=== PATIENT | male | born 1945 | race African-American/Black ===

== ENCOUNTER 2021-11-08 07:15 | Outpatient (CLI) | payer MEDICARE, SELFPAY ==
--- NOTE | 2021-11-08 | ECG_ITS ---
Measurements Intervals Lizella Rate: 50 P: 69 CT: 187 QRS: -9 QRSD: 90 T: 33 QT: 403 QTc: 370 Interpretive Statements SINUS BRADYCARDIA WITH OCCASIONAL SUPRAVENTRICULAR PREMATURE COMPLEXES ABNORMAL ECG NO PREVIOUS ECG AVAILABLE FOR COMPARISON Electronically Signed On 11-08-2021 12:48:52 CDT by Teto Patten M.D.
== END 2021-11-08 07:16 | disposition home or self-care (01) ==
PROVIDERS: PCP Internal Medicine
DX: R05.9 Cough, unspecified (principal); I49.9 Cardiac arrhythmia, unspecified; R94.31 Abnormal electrocardiogram [ECG] [EKG]
CPT/HCPCS: 93005

== ENCOUNTER 2024-08-11 07:03 | Emergency (ER) | payer MEDICARE, SELFPAY ==
--- NOTE | ~2024-08-11 | XR_ITS ---
XR knee RT 3V 08/11/2024 08:07 Indication: Knee pain after recent injury Procedure: 4 views right knee Comparison: 10/31/2008 Findings: There is extensive atherosclerosis. No fracture or traumatic malalignment. No significant j oint effusion. Mild prepatellar soft tissue swelling. No foreign bodies. Impression: 1: No acute bone or joint abnormality. Reviewed, dictated and finalized at location A. KER OPERATOR Impression: 1: No acute bone or joint abnormality.
--- OUTSIDE RECORDS SUMMARY | 2024-08-11 07:05 | XMS_ITS | Patient Health Summary ---
Author Organization [facility] Address [address] [facility] [place] [address] Care Team Providers Care Twister Frame Tender Name Role Phone Alvin Shane DO Primary Care Provider [phone] Note from [facility],non-owned Affiliates and Associated Physician Practices is amultiple site organization consisting of ambulatory clinics and hospital sitesin [place], [place], [place] and [place]. This disclosure is being madepursuant to the Care Everywhere program and may not contain all information available regarding this patient. Last updated 18.[facility] Medications * Be aware that medications may not be up to date on this document. Alwaysverify current medications with the patient. * mycophenolate (Cellcept) 250 MG capsule(Started 05/19/2024) Take 2 (two) capsules by mouth 2 times daily * mycophenolate (Cellcept) 250 MG capsule(Started 07/14/2024) Take 2 (two) capsules by mouth 2 times daily 3 refills by 07/14/2025 Social History Tobacco Use Types Packs/Day Years Used Date Smoking Tobacco: Never Assessed Sex and Gender Information Value Date Recorded Sex Assigned at Not on file Gender Identity Not on file Sexual Orientation Not on file Care Teams Twister Frame Tender Relationship Specialty Start Date End Date Alvin Shane DO PCP - General 05/02/08
--- OUTSIDE RECORDS SUMMARY | 2024-08-11 07:05 | XMS_ITS | Referral Summary ---
Author Organization [facility] Address [address] [facility] [place] [address] Care Team Providers Care Cvicu Nurse Name Role Phone Alvin Shane DO Primary Care Provider [phone] Source Comments [facility],non-owned Affiliates and Associated Physician Practices is amultiple site organization consisting of ambulatory clinics and hospital sitesin [place], [place], [place] and [place]. This disclosure is being madepursuant to the Care Everywhere program and may not contain all information available regarding this patient. Last updated 18.[facility] Encounters Date Type Department Care Team Description 08/04/2024 Orders Only [facility] Ne[facility] [address] [place] [phone] Milena Aldana MD Encounter for monitoring tacrolimus therapy ; Long-term use of immunosuppressant medication; Kidney replaced by transplant (HCC) 08/04/2024 Telephone [facility] [address] [place] [address] [phone] Angela Winters, RN Pain Abdominal 08/03/2024 Telephone [facility] [address] [place] [address] [phone] Jannette Noe RN General (Call back) 07/14/2024 Refill [facility] [address] [place] [address] [phone] Angela Winters, CHARTER AND TOUR BUS DRIVER REFILL 07/01/2024 Telephone [facility] [address] [place] [address], [place] [address] Chano Palacios, distribution center administrator Issue from Last 3 Months Medications * Be aware that medications may not be up to date on this document. Alwaysverify current medications with the patient. Medication Sig Dispensed Refills Start Date End Date Status mycophenolate (Cellcept) 250 MG capsule Take 2 (two) capsules by mouth 2 times daily 05/19/2024 Active mycophenolate (Cellcept) 250 MG capsuleIndications: Kidney transplant status (HCC) Take 2 (two) capsules by mouth 2 times daily 120 capsule 3 07/14/2024 Active Social History Tobacco Use Types Packs/Day Years Used Date Smoking Tobacco: Never Assessed Sex and Gender Information Value Date Recorded Sex Assigned at Not on file Gender Identity Not on file Sexual Orientation Not on file Plan of Treatment Upcoming Encounters Date Type Department Care Team (Late st Contact Info) Description 10/04/2024 8:40 AM CDT Office Visit [facility] [address] [place] [address] Care Teams Cvicu Nurse Relationship Specialty Start Date End Date Alvin Shane DO PCP - General 05/02/08
--- OUTSIDE RECORDS SUMMARY | 2024-08-11 07:05 | XMS_ITS | Clinical Summary ---
Author Organization [facility] Address [address] [facility] [place] [address] Care Team Providers Care Director Of Laboratory Operations Name Role Phone Alvin Shane DO Primary Care Provider [phone] Source Comments [facility],non-owned Affiliates and Associated Physician Practices is amultiple site organization consisting of ambulatory clinics and hospital sitesin [place], [place], [place] and [place]. This disclosure is being madepursuant to the Care Everywhere program and may not contain all information available regarding this patient. Last updated 18.[facility] Medications * Be aware that medications may [...] times daily 120 capsule 3 07/14/2024 Active Encounters Date Type Department Care Team Description 08/04/2024 Orders Only [facility] Ne[facility] [address] [place] [address] [phone] Milena Aldana MD Encounter for monitoring tacrolimus therapy ; Long-term use of immunosuppressant medication; Kidney replaced by transplant (HCC) 08/04/2024 Telephone [facility] [address] [place] [phone] Angela Winters RN Pain Abdominal 08/03/2024 Telephone [facility] [address] [place] [address] [phone] Jannette Noe, MAHESH General (Call back) 07/14/2024 Refill [facility] [address] [place] [address] [phone] Angela Winters RN MEDICATION REFILL 07/01/2024 Telephone [facility] [address] [place] [address] [phone] Chano Palacios, reception agent Issue from Last 3 Months Social History Tobacco Use Types Packs/Day Years Used Date Smoking Tobacco: Never Assessed Sex and Gender Information Value Date Recorded Sex Assigned at Not on file Gender Identity Not on file Sexual Orientation Not on file Plan of Treatment Upcoming Encounters Date Type Department Care Team (Late st Contact Info) Description 10/04/2024 8:40 AM CDT Office Visit [facility] [address] [place] [phone] Health Maintenance Due Date Last Done Comments MEDICARE AWV ? 12 MONTHS 1945 COVID-19 VACCINE (#1) 1949 DTAP/TDAP/TD VACCINES (1 - Tdap) 12/21/1963 PNEUMOCOCCAL VACCINE 50+ (1 of 2 - PCV) 12/21/1963 ZOSTER VACCINE (1 of 2) 12/21/1963 Respiratory Syncytial Virus (RSV) Vaccine Pt: or over 60 yrs (1 - 1-dose 75+ series) 12/21/2019 INFLUENZA VACCINE (#1) 2024 DEPRESSION SCREENING 07/13/2024 HEPATITIS B VACCINE Aged Out No longe r eligible based on patient's age to complete this topic HIB VACCINE Aged Out No longer eligi ble based on patient's age to complete this topic HPV VACCINE Aged Out No longer eligi ble based on patient's age to complete this topic MENINGOCOCCAL (Group B) VACCINE Aged Out No longer eligible based on patient's age to complete this topic MENINGOCOCCAL VACCINE Aged Out No nik yojana eligible based on patient's age to complete this topic Care Teams Director Of Laboratory Operations Relationship Specialty Start Date End Date Alvin Shane DO PCP - General 05/02/08
--- OUTSIDE RECORDS SUMMARY | 2024-08-11 07:05 | XMS_ITS | Encounter Summary ---
Author Organization [facility] Address [address] [place] [address] Care Team Providers Care Regulatory Leader Name Role Phone Siomara Handy MD Primary Care Provider [phone] Reason for Visit * Reason Onset Date Comments Medication Refill 04/24/2022 Encounter Details Date Type Department Care Team (Late st Contact Info) Description 04/24/[address] [facility] Heart and Vascular - [address] [facility] [address] [address] [facility] [address] [place] [address] [place] [address] [facility] [address] [place] [address] Medication Refill Social History Tobacco Use Types Packs/Day Years Used Date Smoking Tobacco: Never Smokeless Tobacco: Never Alcohol Use Standard Drinks/Week Comments Yes 0 (1 standard drink = 0.6 oz pur e alcohol) Sex and Gender Information Value Date Recorded Sex Assigned at Not on file Legal Sex Male 12:24 PM CDT Gender Identity Not on file Sexual Orientation Not on file COVID-19 Exposure Response Date Recorded In the last 10 days, have yo u been in contact with someone who was confirmed or suspected to have Coronavirus/COVID-19? No / Unsure 04/22/2022 7:29 AM CDT documented as of this encounter Miscellaneous Notes * Telephone Encounter - Viky Kim - 04/24/2022 11:16 AM CDT Patient is requesting refills on his Tacrolimus and Lovastatin to be sent to [facility] [phone]. documented in this encounter Plan of Treatment Not on file documented as of this encounter Visit Diagnoses Not on filedocumented in this encounter Care Teams Regulatory Leader Relationship Specialty Start Date End Date Siomara Handy MD PCP - General Internal Medicine 09/20/20 documented as of this encounter
--- OUTSIDE RECORDS SUMMARY | 2024-08-11 07:05 | XMS_ITS | Clinical Summary ---
Author Organization [facility] Address [address] [place] [address] Phone Care Team Providers Care Freelance Operator Name Role Phone Siomara Handy MD Primary Care Provider [phone] Allergies No known active allergies Medications aspirin (ECOTRIN EC) 81 mg Tablet, Delayed Release (E.C.) Take 81 mg by mouth daily. Active primidone (MYSOLINE) 50 mg tablet Take 1 Tablet (50 mg) by mouth daily at bedtime. 30 Tablet 3 1 Active neomycin-bacitra shameka-polymyxin (AK-SPORE) 3.5-400-10,000 lq-fwyp-ptcz/g ointment 0.25 Inches by See Admin Instructions route 3 times daily. 30 Gram 2 Active nystatin (MYCOSTATIN) 100,000 unit/gram Cream Apply to affected area 2 times daily. 30 Gram 1 4 Active finasteride (PROSCAR) 5 mg tablet Take 1 Tablet (5 mg) by mouth daily. 90 Tablet 3 4 Active tamsulosin (FLOMAX) 0.4 mg capsule Take 1 capsule by mouth once daily at bedtime 90 Capsule 4 Active lisinopriL (PRINIVIL) 5 mg tabletIndication s:Benign hypertension Take 1 Tablet (5 mg) by mouth 2 times daily. 270 Tablet 3 4 Active lovastatin (MEVACOR) 10 mg tablet Take 1 Tablet (10 mg) by mouth daily with supper. 90 Tablet 2 4 Active mycophenolate mofetil (CELLCEPT) 250 mg Capsule Take 2 Capsules (500 mg) by mouth 2 times daily. 120 Capsule 2 4 Active valACYclovir (VALTREX) 500 mg tablet TAKE 1 TABLET BY MOUTH EVERY THURSDAY AND 24 Tablet 4 Active valACYclovir (VALTREX) 500 mg tablet TAKE 1 TABLET BY MOUTH ONCE DAILY EVERY THURSDAY AND THURSDAY 24 Tablet 3 4 Active tacrolimus (PROGRAF) 1 mg capsule Take 1 Capsule (1 mg) by mouth 2 times daily. 180 Capsule 2 4 Active mupirocin (BACTROBAN) 2 % Ointment Apply to affected area daily. 30 Gram 1 4 Active doxazosin (CARDURA) 2 mg tablet Take 1 Tablet (2 mg) by mouth daily at bedtime. 90 Tablet 2 4 Active mycophenolate mofetil (CELLCEPT) 250 mg Capsule Take 2 Capsules (500 mg) by mouth 2 times daily. 120 Capsule 3 4 Active lovastatin (MEVACOR) 10 mg tablet TAKE 1 TABLET BY MOUTH ONCE DAILY WITH SUPPER 90 Tablet 4 Active Active Problems Problem Noted Date Diagnosed Date Benign prostatic hyperplasia without lower urinary tract symptoms 04/22/2022 Leukopenia 10/22/2021 Other hyperlipidemia 09/25/2020 Kidney replaced by transplant 08/21/2019 Immunosuppressive management encounter following kidney transplant 08/21/2019 Prostate cancer 08/21/2019 Benign hypertension 08/21/2019 Encounters Date Type Department Care Team Description 07/01/2024 [facility] - [address] [address] Jia Hicks PA-C 05/19/2024 [facility] Integrated Provider [address] [place] [address] Jessica Flores NP from Last 3 Months Family History Medical History Relation Name Comments Hypertension Father Kidney Disease Mother Other Mother PCKD Relation Name Status Comments Father Mother Social History Tobacco Use Types Packs/Day Years Used Date Smoking Tobacco: Never Smokeless Tobacco: Never Alcohol Use Standard Drinks/Week Comments Yes 0 (1 standard drink = 0.6 oz pur e alcohol) Sex and Gender Information Value Date Recorded Sex Assigned at Not on file Legal Sex Male 12:24 PM CDT Gender Identity Not on file Sexual Orientation Not on file Last Filed Vital Signs Vital Sign Reading Time Taken Comments Blood Pressure 138/83 04/22/2022 7:44 AM CDT Pulse 53 04/22/2022 7:44 AM CDT Temperature 36.1 ??C (97 ??F) 04/22/2022 7:44 AM CDT Respiratory Rate - - Oxygen Saturation 100% 01/21/2022 7:30 AM CDT Inhaled Oxygen Concentration - - Weight 85.2 kg (187 lb 12.8 oz) 04/22/2022 7:44 AM CDT Height 180.3 cm (5' 11 ) 04/22/2022 7:44 AM CDT Body Mass Index 26.19 04/22/2022 7:44 AM CDT Plan of Treatment Health Maintenance Due Date Last Done Comments DTAP/TDAP/TD VACCINES (1 - Tdap) 12/21/1963 PNEUMOCOCCAL VACCINE 65+ YEARS (1 of 2 - PCV) 12/20/18 64 ZOSTER VACCINE (1 of 2) 12/21/1963 RSV VACCINE (60+ or ) (1 - 1-dose 75+ series) 12/21/2019 INFLUENZA VACCINE (#1) 2024 Insurance [facility] [id number] Care Teams Freelance Operator Relationship Specialty Start Date End Date Siomara Handy MD PCP - General Internal Medicine 09/20/20
[2024-08-11 07:12] VITALS: BP 165/83; PULSE 65; RESP 18; TEMP 36.4; O2SAT 99
--- NOTE | 2024-08-11 07:25 | ED.GENADULT ---
HPI - General Adult General Chief complaint: Extremity Injury, Lower Stated complaint: bad knee Time Seen by Provider: 08/11/24 07:15 History of Present Illness HPI narrative: 78-year-old male presenting to the emergency department for evaluation for right knee pain. Patient reports approximately 3 weeks ago he did have a fall on the ice landing on the right knee. Patient states he did have x-rays immediately after the injury and was shown to have no fractures. Patient states he did develop significant swelling of the knee but the swelling is now going down. Patient does prior history of kidney transplant approximately 18 years ago. Related Data Allergies Allergy/AdvReac Type Severity Reaction Status Date / Time No Known Allergies Allergy Verified 08/11/24 07:20 Review of Systems Review of Systems: All systems reviewed & are unremarkable except as noted in HPI and below Exam Narrative: APPEARANCE: Well appearing, no pain, no distress, well-nourished. HEAD: normocephalic, atraumatic. EYES: PERRLA/EOMI, conjunctivae clear. NOSE: Normal no drainage EARS:TMS clear with good light reflex. THROAT: Pharynx clear, no exudate. NECK: Supple. No adenopathy, no masses. RESPIRATORY: Airway patent, respirations nonlabored. Clear to auscultation bilaterally, no rales, rhonchi, wheezing. CARDIOVASCULAR: Regular rate and rhythm without murmurs rubs or gallops. ABDOMINAL: Soft, nontender, nondistended, normal bowel sounds MUSCULOSKELETAL: Moves all extremities. Strength/ROM intact, No edema, No calf tenderness. NEURO: Alert. Cranial nerves II through XII intact. Good gait. Good coordination SKIN: Warm, dry. Normal Color Course Vital Signs Vital signs: Vital Signs Temperature 97.6 F 08/11/24 07:12 Pulse Rate 65 08/11/24 07:12 Respiratory Rate 18 08/11/24 07:12 Blood Pressure 165/83 H 08/11/24 07:12 Pulse Oximetry 99 08/11/24 07:12 Oxygen Delivery Room Air 08/11/24 07:12 Temperature 97.6 F 08/11/24 07:12 Pulse Rate 65 08/11/24 07:12 Respiratory Rate 18 08/11/24 07:12 Blood Pressure 165/83 H 08/11/24 07:12 Pulse Oximetry 99 08/11/24 07:12 Oxygen Delivery Room Air 08/11/24 07:12 Medical Decision Making MDM Narrative Medical decision making narrative: 78-year-old male presenting to the emergency department for evaluation for right knee pain. Attempted to order CT scan but patient declined. Patient just wants to have an x-ray done. X-ray was negative for acute fracture dislocation. Patient does have adequate passive range of motion the knee without significant discomfort with some mild effusion, no concern for septic arthritis. Suspect patient had a resolving effusion. Patient was encouraged close follow-up with his primary care physician. All questions concerns were addressed patient was well-appearing at time of discharge. Differential Diagnosis Differential Diagnosis: Knee contusion, knee effusion, knee fracture, septic arthritis, tibial plateau fracture Vital Signs Vital Signs: Vital Signs Temperature 97.6 F 08/11/24 07:12 Pulse Rate 65 08/11/24 07:12 Respiratory Rate 18 08/11/24 07:12 Blood Pressure 165/83 H 08/11/24 07:12 Pulse Oximetry 99 08/11/24 07:12 Oxygen Delivery Room Air 08/11/24 07:12 Temperature 97.6 F 08/11/24 07:12 Pulse Rate 65 08/11/24 07:12 Respiratory Rate 18 08/11/24 07:12 Blood Pressure 165/83 H 08/11/24 07:12 Pulse Oximetry 99 08/11/24 07:12 Oxygen Delivery Room Air 08/11/24 07:12 Imaging Data Radiologist's impression: Impressions Knee X-Ray 08/11/24 08:09 Impression: 1: No acute bone or joint abnormality. Discharge Plan Discharge Clinical Impression: Contusion of knee, right Patient Disposition: Home, Self-Care Condition: Stable Instructions: Antibiotic Form, Knee Pain (ED) Additional Instructions: You declined to have a CT of the knee. You prefer to have an x-ray. X-ray was negative for acute fracture or dislocation. Jean wrap for comfort. Continue to have close follow-up with your primary care physician for additional outpatient imaging as needed if you are not improving. If you have any worsening symptoms then please call or return to the emergency department. Patient Language: Armenian Follow-up/Referrals: Siomara Handy MD [Primary Care Provider] -
--- OUTSIDE RECORDS SUMMARY | 2024-08-11 08:31 | XMS_ITS | Clinical Summary ---
Author Organization [facility] Address [address] [facility] [place] [address] Care Team Providers Care Drywall Boardhanger Name Role Phone Alvin Shane DO Primary Care Provider [phone] Source Comments [facility] [employer] [facility],non-owned Affiliates and Associated Physician Practices is amultiple site organization consisting of ambulatory clinics and hospital sitesin [place], [place], [place] and [place]. This disclosure is being madepursuant to the Care Everywhere program and may not contain all information available regarding this patient. Last updated 18.[facility] [employer] [facility] Medications * Be aware that medications may [...] Orders Only [facility] [address] [place] [address] [phone] Milena Aldana MD Encounter for monitoring tacrolimus therapy ; Long-term use of immunosuppressant medication; Kidney replaced by transplant (HCC) 08/04/2024 Telephone [facility] [address] [place] [phone] Angela Winters RN Pain Abdominal 08/03/2024 Telephone [facility] [address] [place] [address] [phone] Jannette Noe, MAHESH General (Call back) 07/14/2024 Refill [facility] [address] [place] [address] [phone] Angela Winters RN MEDICATION REFILL 07/01/2024 Telephone [facility] [address] [place] [address] [phone] Chano Palacios, photoresist contact printer Issue from Last 3 Months Social History [...] Office Visit [facility] [address] [place] [phone] Health Maintenance Due Date Last Done Comments [...] age to complete this topic Care Teams Drywall Boardhanger Relationship Specialty Start Date End Date Alvin Shane DO PCP - General 05/02/08
--- OUTSIDE RECORDS SUMMARY | 2024-08-11 08:31 | XMS_ITS | Patient Health Summary ---
Author Organization [facility] Address [address] [place] [address] Care Team Providers Care Firefighter Name Role Phone Alvin Shane DO Primary Care Provider [phone] Note from [facility][note 3],non-owned Affiliates and Associated Physician Practices is amultiple site organization consisting of ambulatory clinics and hospital sitesin [place], [place], [place] and [place]. This disclosure is being madepursuant to the Care Everywhere program and may not contain all information available regarding this patient. Last updated 18.[facility] Medications * Be aware that medications may [...] Sexual Orientation Not on file Care Teams Firefighter Relationship Specialty Start Date End Date Alvin Shane DO PCP - General 05/02/08
--- OUTSIDE RECORDS SUMMARY | 2024-08-11 08:31 | XMS_ITS | Continuity of Care Document ---
Author Organization [facility] Address [address] [place] [address] [place] [address] Phone Care Team Providers Care Bank Courier Name Role Phone Sofi VILLALPANDO OD, Xavier Unavailable Unavailabl e Procedures Procedure Date Contact Lens Fitting Advance Directives Directive Yes / No Effective Date File Name No Information Encounters Encounter Description Practice Location Reason(s) For Visit Diagnoses Date Provider Providers Copied on Encounter [facility], [address], [place], [place], [id number], [place] tel:[phone] [facility] No Information [facility]. [address], [place], [id number], [place]. tel:[phone] Referring Provider: Xavier Rodriguez, [address] [place], [address] . tel:[phone] Family History Family Member Type Diagnosis Age At Onset No Information Payers Payer name Insurance type Covered democrat ID Authoriza tion(s) No Information Social History Type Description Quantity Date Captured Comments Sex Male Smoking Status No Information Chief Complaint And Reason For Visit No Information Reason For Referral Reason For Referral No Information History Of Present Illness Encounter Date Complaint History Of Prese nt Illness No Information Functional Status Date Functional Assessmen t No Information Instructions Date Instruction Additional Infor mation No Information Assessments Type Assessment Date No Information Patient Care Teams Name Effective Dates (start - stop) Status Members No Information
--- OUTSIDE RECORDS SUMMARY | 2024-08-11 08:31 | XMS_ITS | Referral Summary ---
Author Organization [facility] Address [address] [place] [address] Care Team Providers Care Grating Machine Operator Name Role Phone Alvin Shane DO Primary Care Provider [phone] Source Comments [facility],non-owned Affiliates and Associated Physician Practices is amultiple site organization consisting of ambulatory clinics and hospital sitesin [place], [place], [place] and [place]. This disclosure is being madepursuant to the Care Everywhere program and may not contain all information available regarding this patient. Last updated 18.[facility] Encounters Date Type Department Care Team Description 08/04/2024 Orders Only [facility] - Nephrology [address] [place] [phone] Milena Aldana MD Encounter for monitoring tacrolimus therapy ; Long-term use of immunosuppressant medication; Kidney replaced by transplant (HCC) 08/04/2024 Telephone [facility] - Nephrology [address] [place] [address] [phone] Angela Winters, RN Pain Abdominal 08/03/2024 Telephone [facility] - GI [address] [place] [address] [phone] Jannette Noe RN General (Call back) 07/14/2024 Refill [facility] - Nephrology [address] [place] [address] [phone] Angela Winters, OBSTETRICS TECH REFILL 07/01/2024 Telephone [facility] [address] [place] [address], [place] [phone] Chano Palacios, computer applications developer Issue from Last 3 Months Medications * [...] Visit [facility] Nephrology [address] [place] [address] Care Teams Grating Machine Operator Relationship Specialty Start Date End Date Alvin Shane DO PCP - General 05/02/08
== END 2024-08-11 08:59 | disposition home or self-care (01) ==
PROVIDERS: Emergency Provider Emergency Medicine; PCP Internal Medicine
DX: S80.01XA Contusion of right knee, initial encounter (principal); Z94.0 Kidney transplant status; W00.0XXA Fall on same level due to ice and snow, initial encounter
CPT/HCPCS: 73562; 99283